=== PATIENT | male | born 1955 | race Caucasian/White ===

== ENCOUNTER 2016-12-13 10:01 | Emergency (ER) | payer MEDICARE ==
[2016-12-13] MEDS ORDERED: ADENOSINE 3 MG/ML 2 ML VIAL IVP STA ×2 (10:06→10:08)
[2016-12-13] MEDS ORDERED: AMIODARONE 450 MG in DEXTROSE 5% IN WATER 250 ML IV ONE ×2 (10:25)
[2016-12-13] MEDS ORDERED: DEXTROSE 5% IN WATER 100 ML with AMIODARONE 150 MG IV ONE (10:25)
[2016-12-13] MEDS ORDERED: HYDROmorphone 1 MG/ML 1 ML SYRINGE IVP STA ×2 (10:25→11:20)
[2016-12-13] MEDS ORDERED: HEPARIN SODIUM,PORCINE 5,000 UNIT/ML 1 ML VIAL IV ONE (10:27)
[2016-12-13] MEDS ORDERED: AMIODARONE 450 MG in DEXTROSE 5% IN WATER 250 ML IV SCH ×2 (10:30)
[2016-12-13] MEDS ORDERED: HEPARIN SODIUM,PORCINE/D5W PMX 25,000 UNIT in DEXTROSE/WATER 1 500ML.BAG IV SCH (10:30)
[2016-12-13] MEDS ORDERED: SODIUM CHLORIDE 0.9% 1,000 ML IV SCH (10:30)
[2016-12-13] MEDS ORDERED: LORazepam 2 MG/ML SYRINGE IV STA ×2 (10:36→11:20)
[2016-12-13 10:44] LABS: Basophils % (A) 0 %; CH 33.5; CHCM 32.1; Eosinophils # (A) 0.1 k/uL (0-0.7); Eosinophils % (A) 1 %; HGB 15.1 gm/dL (13.0-17.5); Luc # (Auto) 0.22; Luc % (Auto) 3; Lymphocytes # (A) 1.9 k/uL (1.0-4.8); Lymphocytes % (A) 23 %; MCHC 31.5 g/dL (31.0-37.0); MCV 104.8 fL (80.0-100.0); Macrocytosis Moderate; Mean Platelet Volume 8.2; Monocytes # (A) 0.4 k/uL (0-1.0); Monocytes % (A) 5 %; Neutrophils # (A) 5.4 k/uL (1.3-7.7); Neutrophils % (A) 68 %; RBC 4.58 m/uL (4.30-5.90)
--- NOTE | 2016-12-13 10:59 | ED ---
General Adult HPI - General Chief complaint: Arrhythmia/Palpitations Stated complaint: Leg Pain Time Seen by Provider: 12/13/16 10:24 Source: patient Mode of arrival: EMS Limitations: no limitations - History of Present Illness Initial comments: This is a 61-year-old male with a history of peripheral vascular disease who presents here department for the chief complaint of right leg pain. In route to the hospital the patient was found to be in what appears to be atrial flutter with 1-1 conduction versus SVT. IV was unable to be established in route. When patient arrived he was awake and alert and speaking however had a heart rate in the 240s. 6 mg of adenosine was unsuccessful and 12 mg was also unsuccessful. The patient was bolused 150 mg of amiodarone which brought his heart rate down to 100. The patient states he does have a history of a stent in the right leg. He does not recall who did the surgery and states that he is from [place]. He states that he does have a history of chronic pain in the leg however got acutely worse this morning and he developed paralysis of the right foot are states he was unable to walk on the foot as well. He denies any chest pain or shortness of breath. He didn't was complaining of some lightheadedness. The patient also does drink daily and is complaining of shaking. He denies any other complaints. - Related Data Home Medications Medication Instructions Recorded Confirmed Atenolol [Tenormin] 50 mg PO DAILY 12/13/16 12/13/16 Clopidogrel [Plavix] 75 mg PO DAILY 12/13/16 12/13/16 Gabapentin [Neurontin] 300 mg PO TID 12/13/16 12/13/16 Pravastatin Sodium [Pravachol] 80 mg PO DAILY 12/13/16 12/13/16 Allergies Allergy/AdvReac Type Severity Reaction Status Date / Time Penicillins Allergy Unknown Verified 12/13/16 10:41 Childhood Review of Systems ROS Statement: Those systems with pertinent positive or pertinent negative responses have been documented in the HPI. ROS Other: All systems not noted in ROS Statement are negative. Past Medical History Past Medical History: Unable to Obtain, Coronary Artery Disease (CAD) History of Any Multi-Drug Resistant Organisms: None Reported Additional Past Surgical History / Comment(s): stent in leg, cardiac stents Past Psychological History: Anxiety Smoking Status: Current every day smoker Past Alcohol Use History: Daily Past Drug Use History: None Reported General Exam - General Exam Comments Initial Comments: Constitutional: Awake alert appears agitated Head: Normocephalic atraumatic Eyes: no conjunctival injection No scleral icterus EOMI Neck: No JVD Supple Heart: Tachycardic normal S1-S2 no murmurs Lungs: Clear to auscultation bilaterally No wheezing No rales Abdomen: Soft nondistended nontender Extremities: Non edematous note DP or PT pulses by Doppler bilaterally, the right foot appears pale and the patient cannot move his foot Radial pulses intact Neuro: A&Ox3 , the patient is unable to move his right foot Psych: Appropriate mood and affect Limitations: no limitations Course Vital Signs 12/13/16 10:01 Temperature 97 F L Pulse Rate 238 H EKG Findings - EKG Comments: EKG Findings:: Initial EKG is showing a wide complex tachycardia with a right bundle-branch block with a rate of 237. Appears regular area QTC is 413. QRS is 146. Repeat EKG is showing atrial fibrillation with a rate of 149 and a right bundle-branch block. QTC is 522. QRS 130. Repeat EKG after that is showing what appears to be either sinus tachycardia or atrial flutter with a rate of 109. QTC 487 to rest 128. Right bundle branch block. Medical Decision Making - Medical Decision Making This is a [age]-year-old male who presents emergency department for right leg pain. He is found to be in a wide Compas tachycardia. He did not respond to adenosine 2 and thus was started on amiodarone. He is currently on 1 mg/m of amiodarone. He is right leg appears ischemic. It is pale and he cannot move the right foot. He does have a history of femoral stenting. He states he does not recall the surgeon's name. I spoke with our vascular surgeon, Dr. Pearl, who stated that he recommended transfer to higher level of care for possible intra-arterial therapy. I spoke with Dr. Odonnell at [facility] who accepted the transfer to [facility] ER category 1. The patient is started on heparin and is currently on amiodarone. He was given Dilaudid and Ativan prior to transport. The patient does have a history of significant drinking as suspect he is going through some withdrawal as well. The patient will be sent to [facility] for vascular surgery evaluation in the ER. - Lab Data Result diagrams: 12/13/16 10:35 Lab Results 12/13/16 Range/Units 10:35 WBC 8.0 (3.8-10.6) k/uL RBC 4.58 (4.30-5.90) m/uL Hgb 15.1 (13.0-17.5) gm/dL Hct 48.0 (39.0-53.0) % MCV 104.8 H (80.0-100.0) fL MCH 33.0 (25.0-35.0) pg MCHC 31.5 (31.0-37.0) g/dL RDW 14.0 (11.5-15.5) % Plt Count 104 L (150-450) k/uL Neutrophils % 68 % Lymphocytes % 23 % Monocytes % 5 % Eosinophils % 1 % Basophils % 0 % Neutrophils # 5.4 (1.3-7.7) k/uL Lymphocytes # 1.9 (1.0-4.8) k/uL Monocytes # 0.4 (0-1.0) k/uL Eosinophils # 0.1 (0-0.7) k/uL Basophils # 0.0 (0-0.2) k/uL Macrocytosis Moderate Disposition Clinical Impression: Atrial flutter Disposition: OTHER INSTITUTION NOT DEFINED Condition: Critical - Out of Hospital Transfer - Req. Specs Out of Hospital Transfer - Requested Specifics: Other Emergency Center
[2016-12-13 11:09] LABS: INR 1.4 (<1.1); Partial Thromboplastin Time 22.4 sec (22.0-30.0); Prothrombin Time 13.4 sec (9.0-12.0)
--- NOTE | 2016-12-13 11:14 | XR ---
EXAMINATION TYPE: XR chest 1V DATE OF EXAM: 12/13/2016 11:10 AM COMPARISON: NONE HISTORY: Pain TECHNIQUE: Single frontal view of the chest is obtained. FINDINGS: There is no focal air space opacity, pleural effusion, or pneumothorax seen. The cardiac silhouette size is within normal limits. The osseous structures are intact. Vein calcific or bony d ensity overlying the lateral margin of the right lower lung field is nonspecific. May be related to r emote trauma. Arthropathy of the shoulders noted. Vascular calcification seen. IMPRESSION: No acute process.
[2016-12-13 11:24] LABS: ALT 53 U/L (21-72); AST 72 U/L (17-59); Alkaline Phosphatase 71 U/L (38-126); Anion Gap 23 mmol/L; Blood Urea Nitrogen 10 mg/dL (9-20); Calcium 9.4 mg/dL (8.4-10.2); Carbon Dioxide 15 mmol/L (22-30); Chloride 100 mmol/L (98-107); Glucose 148 mg/dL (74-99); Magnesium 1.5 mg/dL (1.6-2.3); Non-African American GFR(MDRD) >60 (>60 ml/min/1.73 sqM); Sodium 138 mmol/L (137-145); Total Bilirubin 1.5 mg/dL (0.2-1.3); Total Protein 7.4 g/dL (6.3-8.2)
[2016-12-13 11:27] LABS: Potassium 4.9 mmol/L (3.5-5.1)
[2016-12-13 11:33] VITALS: BP 119/57; PULSE 120; RESP 18; TEMP 98.9
[2016-12-13] MEDS ORDERED: AMIODARONE 50 MG/ML 3 ML VIAL IV ONE (12:00)
[2016-12-13] MEDS ORDERED: DEXTROSE 5% IN WATER 50 ML BAG ONE (12:00)
[2016-12-13] MEDS ORDERED: ADENOSINE 3 MG/ML 2 ML VIAL IVP ONE (12:00)
== END 2016-12-13 11:30 | disposition short-term general hospital (02) ==
LOC: EC 10:01
DX: I48.92 Unspecified atrial flutter (principal); R00.0 Tachycardia, unspecified; M79.604 Pain in right leg; G89.29 Other chronic pain; I25.10 Atherosclerotic heart disease of native coronary artery without angina pectoris; F41.9 Anxiety disorder, unspecified; F17.200 Nicotine dependence, unspecified, uncomplicated; Z79.02 Long term (current) use of antithrombotics/antiplatelets; Z79.899 Other long term (current) drug therapy; Z88.0 Allergy status to penicillin; Z95.5 Presence of coronary angioplasty implant and graft
CPT/HCPCS: 99285; 96374; 96375 ×3; 96376 ×2; 36415; 93005; 80053; 83605; 83735; 84484; 85025; 85610; 85730; 80320; 71010; J2060; J1644 ×2; J0282 ×2; J0153; J1170